=== PATIENT | female | born 1985 | race Caucasian/White ===

== ENCOUNTER 2019-09-07 03:05 | Emergency (ER) | payer MEDICAID ==
[~2019-09-07] VITALS: Ht 160 cm; Wt 57.1 kg
[2019-09-07 03:45] VITALS: BP 123/78
== END 2019-09-07 04:16 | disposition short-term general hospital (02) ==
LOC: ER 03:06
DX: O75.9 Complication of labor and delivery, unspecified (principal); O46.92 Antepartum hemorrhage, unspecified, second trimester; O99.322 Drug use complicating pregnancy, second trimester; F15.90 Other stimulant use, unspecified, uncomplicated; Z3A.22 22 weeks gestation of pregnancy
CPT/HCPCS: 99285